=== PATIENT | female | born 1995 | race Caucasian/White ===

== ENCOUNTER 2024-07-08 07:18 | Emergency (ER) | payer SELFPAY ==
[~2024-07-08] VITALS: Ht 149.9 cm; Wt 77.0 kg
[2024-07-08 07:20] VITALS: O2SAT 100
[2024-07-08] MEDS ORDERED: AMOX1TAB16 PO (09:11)
[2024-07-08 09:28] VITALS: BP 129/76; PULSE 69; RESP 16; TEMP 37.16964; O2SAT 100
== END 2024-07-08 09:34 | disposition home or self-care (01) ==
LOC: ER 07:31
DX: L03.213 Periorbital cellulitis (principal)
CPT/HCPCS: 99283